=== PATIENT | female | born 1950 | race Caucasian/White ===

== ENCOUNTER 2017-10-15 13:51 | Emergency (ER) | payer MEDICARE ==
[~2017-10-15] VITALS: Ht 177.8 cm; Wt 58.1 kg
[~2017-10-15 13:51] MED LIST: AMBIEN PO; KEFLEX500 MG PO; ZOLOFT100 MG PO
[2017-10-15] MEDS ORDERED: KEFLEX500 M1 PO (15:28)
[2017-10-15 15:55] VITALS: BP 101/39
== END 2017-10-15 16:03 | disposition home or self-care (01) ==
LOC: M.ERS 13:51
DX: S61.412A Laceration without foreign body of left hand, initial encounter (principal); X58.XXXA Exposure to other specified factors, initial encounter; Y93.89 Activity, other specified; Y92.89 Other specified places as the place of occurrence of the external cause; Y99.8 Other external cause status